=== PATIENT | male | born 1995 | race Caucasian/White ===

== ENCOUNTER 2017-12-27 07:16 | Emergency (ER) | payer OTHER ==
[~2017-12-27] VITALS: Ht 190.5 cm; Wt 77.1 kg
[~2017-12-27 07:16] MED LIST: CIPRO500 MG PO; NORCO 5-325 TA1 EACH PO
[2017-12-27] MEDS ORDERED: BACLOFEN10 MG PO (07:45)
[2017-12-27] MEDS ORDERED: NORCO 5-325 TA1 EACH PO (07:45)
== END 2017-12-27 07:54 | disposition home or self-care (01) ==
LOC: ED 07:16
DX: S00.81XA Abrasion of other part of head, initial encounter (principal); M54.5 Low back pain; V49.9XXA Car occupant (driver) (passenger) injured in unspecified traffic accident, initial encounter
CPT/HCPCS: 99283

== ENCOUNTER 2017-12-29 16:16 | Emergency (ER) | payer OTHER ==
[~2017-12-29] VITALS: Ht 190.5 cm; Wt 77.1 kg
[~2017-12-29 16:16] MED LIST changes: +BACLOFEN10 MG PO
== END 2017-12-29 17:20 | disposition home or self-care (01) ==
LOC: ED 16:16
DX: S00.81XD Abrasion of other part of head, subsequent encounter (principal); V49.9XXD Car occupant (driver) (passenger) injured in unspecified traffic accident, subsequent encounter
CPT/HCPCS: 70450; 99284